=== PATIENT | male | born 1975 | race Caucasian/White ===

== ENCOUNTER 2024-03-27 07:42 | Day surgery (SDC) | payer BC ==
[2024-03-27] MEDS ORDERED: BACITRACIN OINTMENT 14 GM TUBE TOP ONE (07:52)
[2024-03-27] MEDS ORDERED: OXYMETAZOLINE HCL 0.05% 15ML NAS ONE (07:52)
[2024-03-27] MEDS ORDERED: LIDOCAINE HCL/EPINEPHRINE 20 ML MDV ONE (07:53)
[2024-03-27] MEDS ORDERED: ONDANSETRON 4 MG/2 ML VIAL ONE (07:55)
[2024-03-27] MEDS ORDERED: MIDAZOLAM HCL 2 MG/2 ML INJ ONE (07:55)
[2024-03-27] MEDS ORDERED: FENTANYL CITR 100 MCG/2 ML ONE (07:55)
[2024-03-27] MEDS ORDERED: ROCURONIUM 50 MG/5 ML VIAL IV ONE (07:55)
[2024-03-27] MEDS ORDERED: KETOROLAC 30 MG/ML INJ ONE (07:55)
[2024-03-27] MEDS ORDERED: dexAMETHasone 10 MG/ML VIAL ONE (07:55)
[2024-03-27] MEDS ORDERED: LIDOCAINE 1% MPF 5 ML VIAL ONE (07:55)
[2024-03-27] MEDS ORDERED: propofoL 200 MG/20 ML VIAL IV ONE (07:55)
[2024-03-27] MEDS ORDERED: Ringers Lactate 1,000 ML IV ONE (07:59)
[2024-03-27] MEDS ORDERED: ALBUTEROL 2.5 MG/3 ML NEB SOL ONE (09:38)
--- NOTE | 2024-03-27 09:44 | P.OP ---
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 The head of bed was turned 90 degrees and the patient was draped for sinus procedure. A 0 degree endoscope was used to perform a nasal endoscopy. Copious clear nasal mucus was suctioned from the right and left nasal cavities. On both sides the nasal floor, septum, inferior turbinate, m iddle turbinate, and middle meatus were all unremarkable with no visual lesions ulcerations or obvious sign of infection or polyp. The nasopharynx was completely filled with exophytic vascular appearing mass which obstructed the view of the eustachian tube. Due to the size of the mass it was impossible to determine where the main portion of the mass was anchored. A Blakesley forcep was used to take a biopsy from the inferior aspect of the mass on the left side and sent to pathology for permanent section. The biopsy site was bleeding and the area was packed with Afrin-soaked pledgets for about 5 minutes. After removal there was a small amount of oozing and additional Afrin- soaked pledgets were applied. After about 5 minutes the Afrin-soaked pledgets were removed and the area was still noted to have a moderate amount of bleeding though the bleeding appeared controlled when the packing was in place. Therefore a Xerogel solvable nasal dressing was cut and placed under endoscopic guidance against the biopsy site, pushing and applying pressure on top of the dissolvable dressing with an Afrin-soaked pledget. After leaving this in place for several moments, the Afrin-soaked pledget was removed and the right and left nasal cavities were examined using the 0 degree endoscope. The area appeared hemostatic and no additional treatment was required. The procedure was concluded and the patient was returned to care of anesthesia for awakening extubation in the operating room. The patient was noted to have slow emergence from anesthesia. Complications: None Implants: Xerogel dissolvable nasal packing to the left posterior nasal cavity Fluids & blood products: See anesthesia record Transferred to: Recovery Room Condition: Good
[2024-03-27] MEDS: TRAMADOL HCL 50 MG TAB ONE (10:45)
[2024-03-27 11:05] VITALS: BP 126/88; TEMP 98.1; O2SAT 98
--- NOTE | 2024-03-30 13:00 | EKG ---
Test Date: 2024-03-27 Test Time: 07:51:44 Mutuel Teller: LUIGI MEASUREMENT RESULTS: Intervals: Rate: 87 [place]: 114 QRSD: 86 QT: 344 QTc: 413 [place]: P: 54 [place]: 114 QRS: 54 T: 84 INTERPRETIVE STATEMENTS: Normal sinus rhythm Normal ECG No previous ECG available for comparison Electronically Signed On 03-30-24 12:50:52 CDT by Gerardo Rivas
== END 2024-03-27 10:56 | disposition home or self-care (01) ==
LOC: OR 07:42
PROVIDERS: ATTEND Otolaryngology
PROC: 09BN8ZX Excision of Nasopharynx, Via Natural or Artificial Opening Endoscopic, Diagnostic (ICD-10-PCS; principal; 2024-03-27 08:45)
DX: C11.8 Malignant neoplasm of overlapping sites of nasopharynx (principal)
CPT/HCPCS: 93005; 88305; 42999; J2704; J2001; J7613; J2250; J3010; J1100; J2405; J7120